=== PATIENT | female | born 2000 | race Caucasian/White ===

== ENCOUNTER 2020-07-30 20:01 | Outpatient (REF) | payer MEDICAID, SELFPAY | END 2020-07-30 20:21 | LOC: LBN 20:01 | PROVIDERS: PCP Physician Assistant Medical; Visit Provider Otolaryngology Otolaryngology/Facial Plastic Surgery | DX: L02.91 Cutaneous abscess, unspecified (principal); M27.2 Inflammatory conditions of jaws | CPT/HCPCS: 87070; 87205 ==

== ENCOUNTER 2020-08-30 01:34 | Outpatient (CLI) | payer MEDICAID, SELFPAY ==
--- NOTE | 2020-08-30 | DI.MRI_ITS ---
EXAM: MR ORBIT FACIAL NECK WO CLINICAL HISTORY: ABSCESS,L02.91,SUSPECT OSTEOMYELITIS RT MANDIBLE TECHNIQUE: Multiplanar multisequence MRI was performed. COMPARISON: No exams were available for comparison FINDINGS: There is a 1.5 x 0.7 cm lesion in the subcutaneous tissues adjacent to the body of the right mandible . It exhibits hyperintense signal on the T2 and hypointense signal on the T1 weighted images. It ex tends from the skin surface to the underlying body of the mandible. There is deformity of the adjace nt bone in the mandible. Thinning of the cortex is noted. There is also edema seen in the marrow in this region. The findings are suspicious for subcutaneous abscess and osteomyelitis in the adjacent body of the right mandible. Mildly enlarged lymph nodes are seen in the submandibular region. The largest measures 1.6 x 0.7 cm. There is normal signal in the submandibular glands. The musculature has normal signal and size. Visualized musculature of the tongue is unremarkable. The visualized paranasal sinuses are clear. The visualized parotid gland is unremarkable. IMPRESSION: 1. 1.5 x 0.7 cm fluid signal lesion in the subcutaneous tissues in the right jaw. They adjacent body of the right mandible shows deformity of the adjacent cortex and marrow edema. Findings are suspici ous for subcutaneous abscess with osteomyelitis in the adjacent right mandible. DATA REPOSITORY:
== END 2020-08-30 01:54 ==
PROVIDERS: PCP Physician Assistant Medical; Visit Provider Physician Assistant
DX: L02.01 Cutaneous abscess of face (principal); R59.0 Localized enlarged lymph nodes
CPT/HCPCS: 70540

== ENCOUNTER 2020-09-03 18:01 | Outpatient (REF) | payer MEDICAID, SELFPAY | END 2020-09-03 18:21 | LOC: LBN 18:01 | PROVIDERS: PCP Physician Assistant Medical; Visit Provider Physician Assistant | DX: L02.01 Cutaneous abscess of face (principal); M27.2 Inflammatory conditions of jaws | CPT/HCPCS: 87070; 87205 ==

== ENCOUNTER 2023-11-02 00:53 | Emergency (ER) | payer MEDICAID, SELFPAY ==
[2023-11-02] VITALS (16 sets, daily range): BP systolic 106–116; BP diastolic 58–78; PULSE 83–100; RESP 13–21; TEMP 36.4–36.9; O2SAT 90–100
--- NOTE | 2023-11-02 01:14 | ED.GENADUL_ITS ---
Discharge Plan Discharge Details Chief Complaint: RespSymp Primary Care Provider: Jj Roe ED Provider: Tita Hernandez Home Meds and New Rx's Prescriptions: No Action quetiapine [Seroquel] 300 mg tablet 300 mg PO BID Medical Decision Making This is an unfortunate 23-year-old female who is unhoused and has a history of opiate use disorder who was in [facility] for rehab and was released to a sober living facility. She relapsed about a week ago and attributes this to the of her mother. She has multiple complaints including respiratory symptoms and tells me she developed symptoms 3 days ago and has had a positive COVID test but has never been immunized. She was also complaining of rectal bleeding that is heme-negative here. She states she is suicidal but does not have a plan. She does not appear clinically intoxicated. She is complaining of dizziness but does not have nystagmus and has a reassuring normal neurologic exam. She does have some tenderness of the left wrist but has full range of motion and is neurovascularly intact. She also has a rash on both forearms which she describes as burning. It appears to be a contact dermatitis although it is not pruritic. It is not warm and does not have induration or lymphangitis. She is coughing and wheezing and has been smoking heroin and crack cocaine. She has been in custody for 24 hours and does not appear to be in acute withdrawal. My plan is to test her for COVID. We will also draw blood work appropriate for psychiatric screening since she states she is suicidal. I will order a DuoNeb and a chest x-ray as well as an x-ray of her left wrist. If her ancillary services are within normal limits we will consult mental health for her complaints of suicidality. If her COVID is positive and she has normal renal function we will treat her with Paxlovid Differential Diagnosis Differential Diagnosis: URI, viral illness, COVID, left wrist contusion, opiate use disorder Medical Records Medical records reviewed: Yes I reviewed the patient's medical records. Imaging Data Radiologic Study: Imaging: X-Ray (Left wrist) Radiologist's impression: vRad impression: No acute findings Radiologic Study #2: Imaging: X-Ray (Chest x-ray) Radiologist's impression: Impression no acute findings. Lab Data Lab results reviewed: Yes I reviewed the patient's lab results. HPI General Mode of arrival: ambulatory . Date/Time Provider Initiated Documentation: 11/02/23 01:14 . Limitations to Documentation: no limitations . Information obtained by: patient, RN notes reviewed and old records reviewed . HPI Narrative: Time seen was 1:16 AM in room 7. The patient is a unfortunate 23-year-old female with a history of opiate use disorder who presents with multiple complaints including a positive COVID test, cough body aches blurry vision headache chest pain abdominal pain nausea vomiting, and blood in her stool. She is currently unhoused and comes to us from detention although she is not currently in custody. She is a -2-2-2 who was in [facility] several weeks ago for detoxing from heroin and crack cocaine. She was discharged to a sober living facility called the [facility], where she had been staying until last week when she she relapsed. She has been smoking heroin and crack cocaine. She tells me she relapsed because her mother recently . She has 2 children both of whom are in foster care. She has multiple complaints including dizziness visual changes nausea and vomiting fever and chills and she says several tablespoons of blood in the stool. She has not been immunized against COVID and believes she was exposed while staying in the sober living facility. 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 States she has not been using IV drugs since her last admission to [facility]. She has had a cough that has been minimally productive. She denies any dysuria or vaginal discharge. She was treated for endocarditis in [place]. She also tells me that she is feeling suicidal but does not have a plan. She has also had visual hallucinations where she sees her mother. She has never had visual hallucinations before. She denied any auditory hallucinations. She has difficulty describing her visual disturbances but says that it is blurry and comes and goes. She does not use any visual correction. Her social determinants of health are compromised because she is unhoused and has a history of opiate use disorder. She denies any other aggravating or alleviating factors. She tells me that her respiratory symptoms began 3 days ago. 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 She is not sure what her underlying pathology was. States she is not using drugs at the time and does not think it was related to any other systemic diseases. Her last menstrual period was 2 weeks ago and was normal. She is also complaining of a burning of the rash on the left forearm. She denies any new lotions medications or exposures. She denied any unusual foods recent antibiotics or sick contacts. She is also complaining of left wrist pain from handcuffs when she was arrested. She is right-hand dominant. Related Data Home Medications Medication Instructions Recorded Confirmed quetiapine 300 mg tablet (Seroquel) 300 mg PO BID 11/02/23 11/02/23 Allergies Allergy/AdvReac Type Severity Reaction Status Date / Time No Known Allergies Allergy Unverified 11/02/23 01:07 General Stated Complaint: RespSymp SHAGUFTA: 3 Review of Systems Narrative: see hpi PFSH All Active Problems Abscess, jaw (Acute) Osteomyelitis, jaw chronic (Acute) Abscess (Acute) Social History Smoking/Tobacco Use Status: Current every day Tobacco Type: cigarettes Smoking risk assessment performed?: Yes Alcohol Intake: never Drug use: Daily Substance use type: crack/cocaine and heroin Housing: other Do you feel safe at home: Yes Do you feel safe in your relationship?: Yes Exam Narrative Exam Narrative: The patient is a well-developed well-nourished female who does appear older than her stated age. She does not appear clinically intoxicated. She does not appear dyspneic at rest she is able to speak in full sentences. She is intermittently coughing. She is normotensive. She is not tachycardic tachypneic or febrile. She was mildly hypothermic with temperature of 36.4 Celsius. She had a normal room air O2 sat of 100% Const General: cooperative, comfortable, no acute distress, well developed and not in acute distress Nutritional Appearance: average body habitus and well nourished Orientation: alert, awake and oriented x3 Other: She appears to be mildly dehydrated with slightly dry mucous membranes HENOH Head: normal to inspection, normocephalic and atraumatic Ears: hearing grossly normal bilaterally, external ears normal, TM's normal bilaterally and mastoids normal General nose exam: external nose normal, nares normal and no nasal discharge Face and sinus: normal facial exam, sinuses nontender and face symmetric Mouth: oral mucosae normal, lip normal, tongue normal, oropharynx normal and other (Normal phonation. The patient is handling secretions.) Teeth and gingiva: caries Throat: posterior oropharynx normal and uvula midline Eyes General: appearance normal, both eyes and all related structures Eyelids: eyelids normal Conjunctivae: conjunctivae normal Sclera: sclerae normal Cornea: corneas normal Pupils: PERRL EOM: EOM intact bilaterally and No nystagmus Direct ophthalmoscopy: normal light reflex Other: No photophobia Neck Neck: normal visual inspection, full ROM, no lymphadenopathy, no meningeal signs, trachea midline and supple Lymphatic: no lymphadenopathy noted Chest Chest: normal inspection of the chest Resp Effort & Inspection: normal respiratory effort, able to speak in complete sentences, audible wheezes, no nasal flaring, no respiratory distress, no retractions, no stridor, not tachypneic, no tracheal deviation, no use of accessory muscles, prolonged expiratory phase and other Auscultation: clear to auscultation bilaterally, abnormal I/E ratio, no rales, no rhonchi, wheezes expiratory wheezes and scattered wheezes and no rubs Percussion: percussion normal Tactile Fremitus: tactile fremitus absent Cardio Jugular venous pressure: no JVD Palpation: normal PMI Rate: regular rate Rhythm: regular rhythm Heart Sounds: S1 normal, S2 normal, no gallops, no murmurs and no rubs Other: Distal pulses are intact GI Inspection: normal to inspection and non-distended Palpation: soft, no hepatosplenomegaly, no guarding and tender in the LLQ; not at McBurney's point Percussion: normal to percussion Auscultation: normal bowel sounds Rectal Exam - female: visual inspection normal, normal sphincter tone and heme negative stool General: No CVA tenderness Back/Spine/Pelvis Back: no CVA tenderness and No back tenderness Cervical Spine: normal cervical lordosis, cervical ROM normal, No cervical muscular tenderness, No pain with cervical ROM, No cervical spinal tenderness and No step off deformity Thoracic/Lumbar Spine: thoracic and lumbar spine normal to inspection, No thoracic spinal tenderness and No lumbar spinal tenderness Pelvis: no pain with anterior-posterior compression and no pain with lateral compression Skin General skin exam: turgor normal, no petechiae, no purpura and other (Skin is normal for ethnicity.) Lesions: no lesions Other: The patient has well-healed scars on both forearms consistent with previous self-inflicted cutting. She does not appear to have fresh injection sites on her upper extremities. She has a well-healed surgical scar over the right knee. There is a maculopapular blanching rash on the volar aspect of both forearms greater on the left than on the right. There is no warmth induration or lymphangitis. She is neurovascularly intact in both arms. Neuro General: patient alert, patient awake, patient oriented x3, moves all extremities, no meningeal signs, no focal motor deficits and CN's II-XI intact bilaterally Cranial Nerves: CN's II-XI intact bilaterally, PERRL, accommodation normal, EOM intact bilaterally, no nystagmus, facial strength normal, tongue midline, hearing normal and no nystagmus Cognition: normal cognition Speech: speech normal Gait: normal gait Motor: muscle tone normal throughout and strength 5/5 throughout Sensory Exam: no sensory deficits noted Pupils: Normal pupillary reactivity/response: bilateral Extrem General: normal to inspection, full ROM, capillary refill normal, no clubbing, cyanosis or edema and no calf tenderness Other: As above. The left wrist is slightly tender over the anatomic snuffbox. She has slightly decreased range of motion secondary to pain. There is no significant swelling. There is no obvious deformity or bony crepitus. Her tendons are intact both flexor and extensor tendons. She is neurovascularly intact in all extremities Psych Appearance: grossly normal Affect: normal affect Attitude: cooperative Thought Process: normal Thought Content: normal, no homicidality and suicidality Insight: insight good Judgment: judgment good Other: The patient appears to have capacity make medical decisions. The patient does not appear to be reacting to internal stimuli. She is not grossly intoxicated. She states she is suicidal but does not have a plan. Course 05:16AM the patient was screened by mental health. The patient told them that she took an overdose of Seroquel, 20 tablets of 300 mg prior to being arrested. She did not offer this history to myself or the nursing staff. The nursing staff has consulted poison control. The patient's ingestion was greater than 24 hours ago and she is asymptomatic with normal intervals on her EKG. She has normal liver and renal function and is not demonstrating any evidence of an overdose. She is now cleared for psychiatric placement. We will treat her as actively suicidal. Vital Signs Vital signs: Vital Signs Temperature 36.4 C L 11/02/23 00:55 Pulse 90 11/02/23 00:55 Respiratory Rate 14 11/02/23 00:55 Blood Pressure 106/75 11/02/23 00:55 Pulse Oximetry 100 11/02/23 00:55 Temperature 36.4 C L 11/02/23 01:02 Temperature Source Temporal Artery Scan 11/02/23 01:02 Pulse 95 H 11/02/23 01:02 Respiratory Rate 14 11/02/23 01:02 Respiratory Effort Normal, Non-Labored 11/02/23 01:04 Blood Pressure 106/75 11/02/23 01:02 Blood Pressure Position Sitting 11/02/23 01:02 Pulse Oximetry 100 11/02/23 01:02 Oxygen Delivery Method Room Air 11/02/23 01:02 Oxygen Flow Rate 0 11/02/23 00:55
--- NOTE | 2023-11-02 01:30 | DI.RAD_ITS ---
Exam(s) XR WRIST LT COMP NAVICULAR EXAM: XR WRIST LT COMP NAVICULAR CLINICAL HISTORY: Left wrist pain after handcuffs. TECHNIQUE: 2D digital imaging was performed. COMPARISON: No exams were available for comparison FINDINGS: Four views. No evidence of fracture or dislocation nor significant ulnar variance. Scaphoid and scapholunate dis tance normal. Bone density normal. No osseous lesions. IMPRESSION: No significant osseous findings in the wrist. DATA REPOSITORY: RADIATION DOSE DELIVERED:
--- NOTE | 2023-11-02 01:30 | DI.RAD_ITS ---
Exam(s) XR PORTABLE CHEST AP EXAM: XR PORTABLE CHEST AP CLINICAL HISTORY: cough, shortness of breath. TECHNIQUE: 2D digital imaging was performed. COMPARISON: No exams were available for comparison FINDINGS: Single AP portable view. Heart size is upper normal. The mediastinum is not widened. Lungs are clear. No infiltrates nor obvious pleural effusions. IMPRESSION: No acute pulmonary findings on this single AP portable view of the chest. DATA REPOSITORY: RADIATION DOSE DELIVERED:
--- NOTE | 2023-11-02 01:45 | RT.EKG_ITS ---
APPROVED REPORT Exam: Resting ECG Reason for Exam: h/o endocarditis Patient Location: E HR:79 bpm ECG Measurements Heart Rate 79 AXIS NC 131 P 2 QRSd 76 QRS 45 QT 382 T 8 QTc 438 Conclusion Sinus rhythm...normal P axis, V-rate 60- 99 NSR Normal axis, normal intervals, slight t wave wave inversion in II, No STEMI, no previous availabl e for comparison
[2023-11-02] MEDS: Albuterol/Ipratropium 3 ML UPD VIAL UPD (02:15)
[2023-11-02 02:38] LABS: Bilirubin Negative (Negative); Blood Negative (Negative); Clarity Sl Cloudy (Clear); Glucose Negative (Negative); Ketones >=160 mg/dL (Negative); Leukocyte Esterase Negative (Negative); Nitrite Negative (Negative); Specific Gravity >= 1.030 (1.005-1.025); Urobilinogen 0.2 mg/dL (Up to 0.2); pH 5.5 (5-8)
[2023-11-02 02:39] LABS: Bacteria Moderate HPF (Negative); C & S Indicated? No/Sq. Contamination; Crystals Negative HPF (Negative); Epithelial Cells Many HPF (Negative); Mucus Moderate (Negative); RBC 0-2 HPF (0-2); WBC 0-2 HPF (0-5)
[2023-11-02 02:43] LABS: *AMPHETAMINES SCREEN URINE Negative (Negative); *BARBITURATES SCREEN URINE Negative (Negative); *BENZODIAZEPINES SCREEN URINE Negative (Negative); Cannabinoids THC Positive (Negative); Cocaine Screen,Urine Positive (Negative); METHADONE URINE SCREEN Negative (Negative); OPIATES URINE SCREEN Negative (Negative)
[2023-11-02 02:46] LABS: Tricyclic Antidepressants Negative (Negative)
[2023-11-02 02:57] LABS: Abs Immature Grans 0.04 10^3/uL (0.0-0.06); Absolute Basophil Count 0.02 10^3/uL (0.0-0.2); Absolute Eosinophil Count 0.06 10^3/uL (0.0-0.7); Absolute Lymphocyte Count 1.21 10^3/uL (1.2-3.4); Absolute Monocyte Count 0.29 10^3/uL (0.1-0.8); Absolute Neutrophil Count 7.04 10^3/uL (1.2-6.7); Basophils % 0.2; Eosinophils % 0.7; HCT 43.1 % (36.0-46.0); HGB 14.6 g/dL (11.2-15.7); Immature Grans % 0.5; MCH 30.7 pg (27.0-33.0); MCHC 33.9 % (32.0-36.0); MCV 91 fL (80-95); MPV 10.1 fL (8.0-11.0); Monocytes % 3.3; Neutrophils % 81.3; Platelet Count 179 10^3/uL (130-400); RBC 4.76 10^6/uL (3.93-5.22); RDW 13.1 % (11.7-14.6); RDW-SD 43.7 fL; WBC 8.66 10^3/uL (4.4-10.8)
--- NOTE | 2023-11-02 03:04 | DI.VRAD_ITS ---
PROCEDURE INFORMATION: Exam: XR Chest Exam date and time: 11/02/2023 2:02 AM Age: 23 years old Clinical indication: Cough and shortness of breath; Patient HX: Cough, shortness of breath. (+) covid at home TECHNIQUE: Imaging protocol: Radiologic exam of the chest. Views: 1 view. COMPARISON: MR ORBIT FACIAL NECK WO 08/30/2020 2:06 PM FINDINGS: Lungs: Unremarkable. No consolidation. Pleural spaces: Unremarkable. No pleural effusion. No pneumothorax. Heart/Mediastinum: Unremarkable. No cardiomegaly. Bones/joints: Unremarkable. IMPRESSION: No acute findings. Dictated and Authenticated by: Matt Bradley MD. Ordering:TORI Rivers MD
--- NOTE | 2023-11-02 03:04 | DI.VRAD_ITS ---
PROCEDURE INFORMATION: Exam: XR Left Wrist Exam date and time: 11/02/2023 1:57 AM Age: 23 years old Clinical indication: Patient HX: Left wrist pain after handcuffs TECHNIQUE: Imaging protocol: Radiologic exam of the left wrist. Views: 3 or more views. COMPARISON: No relevant prior studies available. FINDINGS: Bones/joints: Normal. Soft tissues: Normal. IMPRESSION: No acute findings. Dictated and Authenticated by: Matt Bradley MD. Ordering:TORI Rivers MD
[2023-11-02 03:07] LABS: COVID-19 PCR Negative (Negative); Influenza A PCR Negative (Negative); Influenza B PCR Negative (Negative); RSV PCR Negative (Negative)
[2023-11-02 03:09] LABS: Lipase 27 U/L (16-77)
[2023-11-02 03:09] LABS: Source Nasopharynx
[2023-11-02 03:10] LABS: Salicylate 2.9 mg/dL (<2.8)
[2023-11-02 03:11] LABS: Acetaminophen < 2 ug/mL (10-30)
[2023-11-02 03:12] LABS: ALT 23 U/L (14-59); AST 28 U/L (15-37); Albumin 4.1 g/dL (3.4-5.0); Alkaline Phosphatase 103 U/L (46-116); Anion Gap 13.9 mmol/L (3-11); BUN 13 mg/dL (7-18); Bilirubin, Total 1.7 mg/dL (0.2-1.0); CO2 23.1 mmol/L (21.0-32.0); CREATININE 0.7 mg/dL (0.55-1.02); Calcium 9.5 mg/dL (8.5-10.1); Chloride 101 mmol/L (98-107); ETHANOL BLOOD 3.6 mg/dL (<10); Estimated GFR 123.01 (mL/min/1.73m2); Glucose 118 mg/dL (74-106); Potassium 3.2 mmol/L (3.5-5.1); Sodium 138 mmol/L (136-145); Total Protein 8.3 g/dL (6.4-8.2)
--- NOTE | 2023-11-02 04:06 | NUR.NOTE ---
Provider ordered 1 Liter of NS, provider had requested strait stick only, no IV, pt given fluids PO instead of IV, FPJ
[2023-11-02] MEDS: Potassium Chloride 20 MEQ TABCR 40 MEQ PO (08:29)
[2023-11-02] MEDS: Nicotine 14 MG/24 HR PATCH TD (11:31)
--- NOTE | 2023-11-02 16:50 | ED.PROG_ITS ---
Date of service: 11/02/23 Time of Service: 16:50 Medical Decision Making Care was signed out by Dr. Manzanares, please see her documentation regarding earlier ED course. Plan at signout is to follow-up on mental health evaluation. Patient here voluntarily for suicidality. Patient seen by crisis screener who feels inpatient treatment is warranted. [facility] I spoke with STATION BAGGAGE PORTER Rodrigo, discussed ED presentation course, she will accept the patient in transfer. Lab Data Lab results reviewed: Yes I reviewed the patient's lab results. Labs: Laboratory Tests Range/Units 11/02/23 11/02/23 01:10 02:49 WBC (4.4-10.8) 10^3/uL 8.66 RBC (3.93-5.22) 10^6/uL 4.76 Hgb (11.2-15.7) g/dL 14.6 Hct (36.0-46.0) % 43.1 MCV (80-95) fL 91 MCH (27.0-33.0) pg 30.7 MCHC (32.0-36.0) % 33.9 RDW (11.7-14.6) % 13.1 Plt Count (130-400) 10^3/uL 179 MPV (8.0-11.0) fL 10.1 Immature Gran % 0.5 Neutrophils % 81.3 Lymphocytes % 14.0 Monocytes % 3.3 Eosinophils % 0.7 Basophils % 0.2 Nucleated RBC % (0.0-0.3) % 0.0 Absolute Neutrophils (1.2-6.7) 10^3/uL 7.04 H Absolute Lymphocytes (1.2-3.4) 10^3/uL 1.21 Absolute Monocytes (0.1-0.8) 10^3/uL 0.29 Absolute Eosinophils (0.0-0.7) 10^3/uL 0.06 Absolute Basophils (0.0-0.2) 10^3/uL 0.02 Sodium (136-145) mmol/L 138 Potassium (3.5-5.1) mmol/L 3.2 L Chloride (98-107) mmol/L 101 Carbon Dioxide (21.0-32.0) mmol/L 23.1 Anion Gap (3-11) mmol/L 13.9 H BUN (7-18) mg/dL 13 Creatinine (0.55-1.02) mg/dL 0.7 Est GFR (CKD-EPI 2020) (mL/min/1.73m2) 123.01 Glucose (74-106) mg/dL 118 H Calcium (8.5-10.1) mg/dL 9.5 Total Bilirubin (0.2-1.0) mg/dL 1.7 H AST (15-37) U/L 28 ALT (14-59) U/L 23 Alkaline Phosphatase (46-116) U/L 103 Total Protein (6.4-8.2) g/dL 8.3 H Albumin (3.4-5.0) g/dL 4.1 Lipase (16-77) U/L 27 Urine Color (Yellow) Yellow Urine Clarity (Clear) Sl Cloudy Urine pH (5-8) 5.5 Ur Specific [place] (1.005-1.025) >= 1.030 H Urine Protein (Negative) mg/dL 30 H Urine Ketones (Negative) mg/dL >=160 H Urine Blood (Negative) Negative Urine Nitrite (Negative) Negative Urine Bilirubin (Negative) Negative Urine Urobilinogen (Up to 0.2) mg/dL 0.2 Ur Leukocyte Esterase (Negative) Negative Urine RBC (0-2) HPF 0-2 Urine WBC (0-5) HPF 0-2 Ur Epithelial Cells (Negative) HPF Many Urine Crystals (Negative) HPF Negative Urine Bacteria (Negative) HPF Moderate Urine Mucus (Negative) Moderate Ur Culture Indicated? No/Sq. Contamination Urine Glucose (Negative) mg/dL Negative Salicylates (<2.8) mg/dL 2.9 Urine Opiates Screen (Negative) Negative Urine Methadone Screen (Negative) Negative Acetaminophen (10-30) ug/mL < 2 Ur Barbiturates Screen (Negative) Negative Ur Tricyclics Screen (Negative) Negative Ur Amphetamines Screen (Negative) Negative U Benzodiazepines Scrn (Negative) Negative Urine Cocaine Screen (Negative) Positive A Ur THC Screen (Negative) Positive A Ethyl Alcohol (<10) mg/dL 3.6 COVID-19 Source Nasopharynx SARS-CoV-2 (PCR) (Negative) Negative Influenza Type A (PCR) (Negative) Negative Influenza Type B (PCR) (Negative) Negative RSV (PCR) (Negative) Negative Sign Out Sign Out Data: Sign Out Comment: This is an unfortunate 23-year-old female with history of opiate use disorder who is currently unhoused and presents from half-way where she has been for 24 hours for smoking heroin and crack cocaine. She was detoxed at [facility] several weeks ago but recently relapsed after her mother . Initially she came in with complaints of cough and shortness of breath and told that she had a positive COVID test at home. She also told me she had blood in her stool. She initially did not express any suicidal ideation but then told that she did not feel suicidal and worse after her arrival here told us that she had taken an overdose of Seroquel. We consulted mental health and poison control. She is medically clear and is currently awaiting voluntary placement. She is COVID-negative and rectal was heme-negative as well. Last updated by Tita Hernandez MD at 11/02/23 07:42 Discharge Plan Disposition Patient Disposition: Psychiatric Hospital/Unit Specific Psychiatric Facility: [facility] Discharge Details Chief Complaint: RespSymp Clinical Impression: Suicidal ideation Primary Care Provider: Jj Roe ED Provider: Lonny Langley Home Meds and New Rx's Prescriptions: No Action quetiapine [Seroquel] 300 mg tablet 300 mg PO BID
== END 2023-11-02 17:53 ==
PROVIDERS: Emergency Medicine Emergency Medical Services; Emergency Provider Student in an Organized Health Care Education/Training Program; PCP Physician Assistant Medical
DX: R45.851 Suicidal ideations (principal); F11.90 Opioid use, unspecified, uncomplicated; M25.532 Pain in left wrist; Z59.02 Unsheltered homelessness; Z11.52 Encounter for screening for COVID-19
CPT/HCPCS: 00123; 80053; 80307; 83690; 87637; 93005; 94640; 96360; 99285; 71045; 73110; 80320; 80329; 81003; 81015; 85025; 93010; J7620

== ENCOUNTER 2025-01-31 18:44 | Emergency (ER) | payer MEDICAID, SELFPAY ==
[2025-01-31] VITALS (20 sets, daily range): BP systolic 115–140; BP diastolic 61–116; PULSE 88–113; RESP 11–30; O2SAT 93–98
[2025-01-31] MEDS: OLANZapine ODT 5 MG TAB 10 MG PO (18:57)
[2025-01-31 20:08] LABS: Absolute Basophil Count 0.04 10^3/uL (0.0-0.2); Absolute Lymphocyte Count 1.03 10^3/uL (1.2-3.4); Absolute Monocyte Count 0.89 10^3/uL (0.1-0.8); Absolute Neutrophil Count 17.63 10^3/uL (1.2-6.7); Basophils % 0.2 %; Eosinophils % 0.2 %; HCT 35.3 % (36.0-46.0); HGB 12.6 g/dL (11.2-15.7); Immature Grans % 0.5 %; Lymphocytes % 5.2 %; MCH 31.3 pg (27.0-33.0); MCHC 35.7 % (32.0-36.0); MCV 88 fL (80-95); MPV 10.4 fL (8.0-11.0); Monocytes % 4.5 %; Neutrophils % 89.4 %; Platelet Count 220 10^3/uL (130-400); RBC 4.03 10^6/uL (3.93-5.22); RDW 12.9 % (11.7-14.6); WBC 19.72 10^3/uL (4.4-10.8)
[2025-01-31 20:09] LABS: Absolute Eosinophil Count 0.04 10^3/uL (0.0-0.7)
[2025-01-31 20:48] LABS: Anion Gap 11.4 mmol/L (3-11); BUN 9 mg/dL (7-18); CO2 25.6 mmol/L (21.0-32.0); CREATININE 0.9 mg/dL (0.55-1.02); Calcium 9.1 mg/dL (8.5-10.1); Chloride 101 mmol/L (98-107); Estimated GFR 90.42 (mL/min/1.73m2); Glucose 133 mg/dL (74-106); Sodium 138 mmol/L (136-145); TSH (W/Ref FT4) 2.12 uIU/mL (0.36-3.74)
[2025-01-31 20:59] LABS: ETHANOL BLOOD < 3.0 mg/dL (<10)
[2025-01-31 21:04] LABS: Acetaminophen < 2 ug/mL (10-30); Salicylate < 2.8 mg/dL (<2.8)
[2025-01-31] MEDS: LORazepam 2 MG/ML VIAL IM (21:22)
[2025-01-31] MEDS: Haloperidol 5 MG/ML VIAL IM (21:22)
[2025-01-31] MEDS: diphenhydrAMINE 50 MG/ML VIAL IVP (21:22)
--- NOTE | 2025-01-31 21:36 | ED.GENADUL_ITS ---
Discharge Plan Discharge Details Chief Complaint: DrugWithdr/MAT Primary Care Provider: Jj Roe ED Provider: Joslyn Martínez Home Meds and New Rx's Prescriptions: No Action quetiapine [Seroquel] 300 mg tablet 300 mg PO BID HPI General Date/Time Provider Initiated Documentation: 01/31/25 18:45 . Limitations to Documentation: altered mental status . Information obtained by: police and EMS . HPI Narrative: 24-year-old female with past medical history of polysubstance abuse presents via EMS [place] Bystanders called [facility] who had EMS bring her to the hospital. She reports that she was doing lots of drugs today with her friends and driving around in the car. She states that she had to get out and go pee when she got up to go pee they left her. It is unknown how long she was on the side of the road. She endorses fentanyl meth alcohol THC done today. She states that she feels very itchy and cannot sit still Related Data Home Medications ?Medication ?Instructions ?Recorded ?Confirmed quetiapine 300 mg tablet (Seroquel) 300 mg PO BID 11/02/23 11/02/23 Allergies Allergy/AdvReac Type Severity Reaction Status Date / Time No Known Allergies Allergy Unverified 11/02/23 01:07 General Stated Complaint: DrugWithdr/MAT SHAGUFTA: 3 Exam Narrative Exam Narrative: Review of Systems: All systems reviewed & are unremarkable except as noted in HPI and below Well-developed,dishelved NCAT tachycardic Unlabored respiratory effort Extremities w/o deformity No increased work of breathing, tachypnea or hypoxia generalized excoriations and ongoing scratching no focal neurologic deficits labile, agitated, able to follow commands Course Vital Signs Vital signs: Vital Signs Pulse 113 H 01/31/25 18:50 Respiratory Rate 30 H 01/31/25 18:50 Blood Pressure 140/116 H 01/31/25 18:50 Pulse Oximetry 95 01/31/25 18:50 Pulse 113 H 01/31/25 18:50 Respiratory Rate 30 H 01/31/25 18:50 Blood Pressure 140/116 H 01/31/25 18:50 Blood Pressure Position Sitting 01/31/25 18:50 Pulse Oximetry 95 01/31/25 18:50 Oxygen Delivery Method Room Air 01/31/25 18:50 Oxygen Flow Rate 0 03/18/25 18:50 Lab/Test Results Lab/Test Results: Laboratory Tests Range/Units 01/31/25 20:00 WBC (4.4-10.8) 10^3/uL 19.72 H RBC (3.93-5.22) 10^6/uL 4.03 Hgb (11.2-15.7) g/dL 12.6 Hct (36.0-46.0) % 35.3 L MCV (80-95) fL 88 MCH (27.0-33.0) pg 31.3 MCHC (32.0-36.0) % 35.7 RDW (11.7-14.6) % 12.9 Plt Count (130-400) 10^3/uL 220 MPV (8.0-11.0) fL 10.4 Immature Gran % % 0.5 Neutrophils % % 89.4 Lymphocytes % % 5.2 Monocytes % % 4.5 Eosinophils % % 0.2 Basophils % % 0.2 Nucleated RBC % (0.0-0.3) % 0.0 Absolute Neutrophils (1.2-6.7) 10^3/uL 17.63 H Absolute Lymphocytes (1.2-3.4) 10^3/uL 1.03 L Absolute Monocytes (0.1-0.8) 10^3/uL 0.89 H Absolute Eosinophils (0.0-0.7) 10^3/uL 0.04 Absolute Basophils (0.0-0.2) 10^3/uL 0.04 Sodium (136-145) mmol/L 138 Potassium (3.5-5.1) mmol/L 3.0 L Chloride (98-107) mmol/L 101 Carbon Dioxide (21.0-32.0) mmol/L 25.6 Anion Gap (3-11) mmol/L 11.4 H BUN (7-18) mg/dL 9 Creatinine (0.55-1.02) mg/dL 0.9 Est GFR (CKD-EPI 2020) (mL/min/1.73m2) 90.42 Glucose (74-106) mg/dL 133 H Calcium (8.5-10.1) mg/dL 9.1 TSH (0.36-3.74) uIU/mL 2.12 Salicylates (<2.8) mg/dL < 2.8 Acetaminophen (10-30) ug/mL < 2 Ethyl Alcohol (<10) mg/dL < 3.0 Medical Decision Making Emergent evaluation of polysubstance abuse. Patient is a 24-year-old female brought in by EMS. She does state that she is homeless, but is unclear how long she has been on the side of the road. The patient appears clinically intoxicated and is all over the place. She cannot stay in bed. She is constantly scratching herself. She asks me to stop using my face to look at her. She is crying and agitated. She endorses a wide spectrum of substances that she is used today. She has some mild vital sign derangement. On initial evaluation, the patient does not endorse any suicidal or homicidal ideations. She does vaguely endorse some interest in sobriety and recovery. Given her initial agitation, will give a dose of oral Zyprexa and given the likelihood that this patient is going to be in the emergency department for some time, will check some screening labs. 2100 Patient continues to get out of bed and says that she is starving and needs to eat but then is trying to vomit on the floor, she is a significant fall risk and is requiring multiple repeated attempts for redirection and keeping her safe. The Zyprexa did not seem to help much, I will give a B-52 to help reduce her in ternal stimuli and keep her safe and calm. I reviewed her lab work and noted that she does have some mild hypokalemia at 3.0. Her white blood cell count is 19, it is unclear what this could be caused by is not just demargination from her overall agitation. Will give IV potassium replacement and IV fluids. I have added on CPK and a test, she does not provide a urine sample at this time. Patient responded appropriately to the B52 and vitals within normal limits now. She is resting comfortably getting IV fluids. Plan for observation until mental status improves and patient can be safely discharged. Turned over to oncoming provider. Quality:SDOH Health Related Social Needs: No Data to Display PFSH All Active Problems (Updated 12/03/23 @ 00:04 by ALEX CLEVELAND) Abscess, jaw (Acute) Osteomyelitis, jaw chronic (Acute) Abscess (Acute) Social History Smoking/Tobacco Use Status: Current every day Tobacco Type: cigarettes Smoking risk assessment performed?: Yes Alcohol Intake: never Drug use: Daily Substance use type: crack/cocaine and heroin Housing: other Do you feel safe at home: Yes Do you feel safe in your relationship?: Yes Restraint Face to Face Time of Face to Face Face to Face: Time of Face to Face: 21:00 Patient's Immediate Situation Requiring Restraints/Seclusion: Harm to Patient Patient Response to Restraints: Tolerating without Problems Patient's Medical & Behavioral Condition: Patient keeps getting out of her bed and her pants are falling off and she is a significant fall risk. It is impossible to keep her redirected and staying in bed and the Zyprexa that she took orally does not seem to be helping. At this time I will give a B-52 for her safety
[2025-01-31 21:40] LABS: Lab Add On Test DONE
[2025-01-31 21:53] LABS: Creatine Kinase 498 U/L (26-192)
[2025-01-31 21:54] LABS: HCG Qual (Serum) Negative
[2025-01-31] MEDS: Lactated Ringers 1,000 ML 1000 ML IV (22:20)
[2025-01-31] MEDS: POTASSIUM CHLORIDE 10 MEQ/100 ML BAG 100 MEQ IV_INF (22:21)
[2025-01-31] MEDS: Ondansetron 4 MG/2 ML VIAL IVP (22:21)
--- NOTE | 2025-01-31 23:30 | ED.PROG_ITS ---
Date of service: 01/31/25 Time of Service: 23:31 Medical Decision Making This patient was signed out to me. Please see previous notes for H&P and initial eval. in brief, 24yo F presenting after being found sleeping on the side of the road who self-reports being left there by her friend after using meth, fentanyl, ETOH, and THC today. Agitated, given zyprexa, haldol, benadryl, and ativan. Leukoctysosis of unclear origin (non-specific), treated for mild hypokalemia with IV potassium, labs otherwise reassuring. During signout nursing informed us that patient was suspected to have used an unknown substance intranasaly in the bathroom. Plan to allow time to metabolism substances and reassess. Overnight patient mostly appeared to be sleeping, some episodes of agitated that responded to verbal redirection. This morning 0630 awoke patient with touch. She is alert, oriented, and able to walk steadily independently. She is requesting assistance with substance use and detox and so legal recovery specialist consult placed. Will be signed out to oncoming physican, plan as above. Quality:SDOH Health Related Social Needs: No Data to Display Discharge Plan Discharge Details Chief Complaint: DrugWithdr/MAT Primary Care Provider: Jj Roe ED Provider: Joslyn Martínez Home Meds and New Rx's Prescriptions: No Action quetiapine [Seroquel] 300 mg tablet 300 mg PO BID
[2025-02-01] VITALS (94 sets, daily range): BP systolic 99–154; BP diastolic 46–108; PULSE 69–108; RESP 10–27; O2SAT 91–100
[2025-02-01 00:48] LABS: *AMPHETAMINES SCREEN URINE Negative (Negative); *BARBITURATES SCREEN URINE Negative (Negative); *BENZODIAZEPINES SCREEN URINE Negative (Negative); Cannabinoids THC Positive (Negative); Cocaine Screen,Urine Positive (Negative); METHADONE URINE SCREEN Negative (Negative); OPIATES URINE SCREEN Negative (Negative); Tricyclic Antidepressants Negative (Negative)
--- NOTE | 2025-02-01 07:06 | W.EDPROG ---
Date of service: 02/01/25 Time of Service: 07:27 Medical Decision Making In brief, this is a 24-year-old female patient who presented to the emergency department last night with acute intoxication. At the time that I took over her care, she has had a medical clearance examination which included reassuring laboratory studies, though she did have a mild hypokalemia which was repleted. She has remained hemodynamically stable and has been sleeping, and at the time that she was signed out to my care was awaiting recovery operator consultation for detox/rehab options. The patient continued to be significantly sleepy and difficult to awaken for several more hours. The recovery coaches were paged, and unfortunately the patient was not participatory in that examination. She did get up, eat a meal, and has had a complete medical evaluation and metabolized appropriately. I did ensure that she had access to the recovery operator information should she choose to engage with their team. At this time, the patient has had a full medical evaluation and is safe for discharge to home. They are hemodynamically stable, ambulatory, and tolerating PO. They are understanding of the follow-up plan and return precautions. They left our facility without incident. Mary Luo MD Medical Records Medical records reviewed: Yes I reviewed the patient's medical records. Lab Data Lab results reviewed: Yes I reviewed the patient's lab results. Quality:SDOH Health Related Social Needs: No Data to Display Discharge Plan Disposition Patient Disposition: Home Condition: Stable Discharge Details Clinical Impression: Substance use disorder Primary Care Provider: Jj Roe ED Provider: Mary Luo Home Meds and New Rx's Prescriptions: No Action quetiapine [Seroquel] 300 mg tablet 300 mg PO BID Discharge Instructions Instructions: Substance Misuse Treatment Additional Instructions: You were seen in the emergency department for substance use disorder, for which you had a full physical examination performed, received medications and were monitored in the emergency department for several hours. Your vital signs remained stable and it is safe for you to leave the hospital. We did attempt to have the recovery operator meet with you several times, and they left their information for you, and you can follow-up with them to discuss outpatient resources such as detox and sobriety management. Please follow-up with your primary care provider in the next few days to discuss this visit and any symptoms that change, worsen, or persist. Thank you for allowing us to be part of your care.
[2025-02-01] MEDS: Acetaminophen 500 MG TAB 1000 MG PO (11:30)
== END 2025-02-01 15:33 | disposition home or self-care (01) ==
PROVIDERS: Emergency Medicine; Emergency Provider Emergency Medicine; PCP Physician Assistant Medical
DX: F19.139 Other psychoactive substance abuse with withdrawal, unspecified (principal); R45.1 Restlessness and agitation; E87.6 Hypokalemia; F17.210 Nicotine dependence, cigarettes, uncomplicated
CPT/HCPCS: 00123; 80048; 80307; 81025; 82550; 96365; 96366; 96372; 96375; 99285; 80320; 80329; 84443; 84702; 84703; 85025; J1200; J1630; J2060; J2405; J3480